=== PATIENT | female | born 1975 | race Caucasian/White ===

== ENCOUNTER 2016-04-01 09:19 | Emergency (ER) | payer BC ==
[2016-04-01 09:34] VITALS: BP 129/85
[2016-04-01 09:55] LABS: Hematocrit 44.8 % (37.0-47.0); Hemoglobin 14.5 gm/dL (12.5-16.0); Mean Cell Volume 85.8 fl (78-100); Mean Corpuscular Hemoglobin 27.8 pg (27-31); Mean Corpuscular Hgb Conc 32.4 g/dl (32-36); Mean Platelet Volume 9.7 fl (6.0-9.5); Neutrophil # 3.7 K/mm3 (1.3-6.0); Neutrophil % 66.2 % (42-75.0); Platelet Count 246 K/mm3 (150-450); Red Blood Count 5.22 M/mm3 (4.2-5.4); Red Cell Distribution Width 13.2 % (11.5-14.0); White Blood Count 5.6 K/mm3 (4.0-10.5)
[2016-04-01 10:05] LABS: Albumin * 4.2 gm/dl (3.4-5.0); Anion Gap 10.8 mmol/L (6.8-13.8); BUN/Creatinine Ratio 11.1 (9.0-21.6); Bilirubin, Total 0.8 mg/dL (0.0-1.1); Calcium * 9.5 mg/dL (7.9-10.9); Carbon Dioxide 31.2 mmol/L (24-32.6); Total Protein 7.9 gm/dL (6.2-8.2)
[2016-04-01 10:14] LABS: Urine Bilirubin Negative (NEGATIVE); Urine Ketone Negative (NEGATIVE); Urine Nitrite Negative (NEGATIVE); Urine Protein Negative (NEGATIVE); Urine Specific Gravity <=1.005 SP.GR. (1.005-1.010); Urine Urobilinogen Normal (NORMAL)
[2016-04-01] MEDS ORDERED: BELLADONNA ALKALOIDS/PHENOBARB 60 ML BTL PO ONE (10:26)
[2016-04-01] MEDS ORDERED: LIDOCAINE HCL 20 ML UDC MM ONE (10:26)
[2016-04-01] MEDS ORDERED: SUCRALFATE 1 G/10 ML UDC PO ONE (10:26)
[2016-04-01] MEDS ORDERED: MAG HYDROX/ALUMINUM HYD/SIMETH 30 ML UDC PO ONE (10:26)
[2016-04-01 10:32] LABS: Urine Appearance Clear; Urine Bacteria None Seen; Urine Blood 10 /ul (NEGATIVE); Urine Color Pale Yellow; Urine RBC TRACE /hpf (0-5); Urine WBC None Seen /hpf (0-5)
--- NOTE | 2016-04-01 10:45 | ERNOTE ---
Abdominal HPI - Narrative Date of Service: 04/01/16 - General Chief Complaint: Abdominal Pain Time Seen by Provider: 04/01/16 10:12 Source: patient Exam Limitations: no limitations - Immun/Allergies/Home Medications Immunizatons: IMMUNIZATION HX Immunizations Up to Date Yes History of Influenza Vaccine Yes Hx Pneumococcal Vaccination No Allergies/Adverse Reactions: Allergies No Known Allergies Allergy (Verified 04/01/16 09:34) Home Medications: HOME MEDICATIONS Ondansetron HCl [Zofran] 4 mg PO Q6H 04/01/16 [Last Taken Unknown] Pantoprazole Sodium [Protonix] 40 mg PO BID #30 tab 04/01/16 [Last Taken Unknown ] Polyethylene Glycol 3350 [Miralax] 17 gm PO DAILY #1 bottle 04/01/16 [Last Taken Unknown] Sucralfate [Carafate Suspension] 1 g PO ACHS #560 ml 04/01/16 [Last Taken Unknown] - History of Present Illness Narrative: 41 yo, F, reports to ER for evaluation of epigastric pain x2 weeks. States she is having nausea and burning to epigastric region since the week of . States she began feeling sick a few days after . She was evluated in the [place] ER on 03/28/15. A cardiac workup was performed with a normal EKG, negative CXR and negative Troponin. States her symptoms improved with a GI cocktail, but states symptoms returned 30 min later. She feels her nausea and epigastric pain have progressively worsened over the past few days and is having only minimal improvement with Zantac and Prevacid. Initially she was having improvement of pain and nausea with bland foods, such as bananas, but is now having no relief with eating. She is scheduled to see GI at [facility] on 04/08/15, but states she was very uncomfortable this am and felt she needed to seek tx sooner. Last BM today, which she describes as loose, otherwise having no diarrhea or constipation. Timing: constant, getting worse Quality: burning Modifying Factors - (Improves): Present: antacids - mild improvement Modifying Factors - (Worsens): Present: lying down Associated Symptoms: Present: nausea. Absent: chest pain, diarrhea-gross blood , vomiting, shortness of breath Prior Abdominal Problems: Present: none Review of Systems - Review of Systems Constitutional: Present: chills, diaphoresis - single episode this am. Absent: fever ENT: Absent: nose congestion, sore throat Respiratory: Absent: shortness of breath, cough, wheezing Cardiology: Absent: chest pain, palpitations Genitourinary: Absent: frequency, pain, dysuria, hematuria Skin: Absent: rash - Patient's Past Medical History Patient History - Medical: Anxiety Patient History - Cancer: No Hx of Cancer Patient History - Surgical Procedures: D & C LMP (females 10-50): last week - Social History Living Situations: home Smoking Status: Never smoker Alcohol Use: none Drug Use: none Physical Exam - Physical Exam General Appearance: Present: wd/wn, alert, no apparent distress Respiratory: Present: no respiratory distress, normal breath sounds. Absent: rales, rhonchi, wheezing Cardiovascular/Chest: Present: regular rate, rhythm, no murmur Gastrointestinal/Abdominal: Present: normal bowel sounds, nondistended, soft, no organomegaly, tenderness - epigastric region. Absent: rebound, McBurney sign , Mahan sign Back Exam: Present: no CVA tenderness Neurological Exam: Present: alert, oriented, normal mood/affect Skin Exam: Present: normal color, warm/dry ED Progress - Results and Orders Patient's Lab Results:: I have reviewed the patient's lab results. - Vital Signs Patient's Vital Signs:: I have reviewed the patient's vital signs. Vital Signs: Vital Signs 04/01/16 09:29 Temperature 36.6 C Pulse Rate 81 Respiratory 16 Rate Blood Pressure 129/85 O2 Sat by Pulse 99 Oximetry - EKG EKG: NSR - reviewed with [facility] EKG, no acute changes noted - X-Ray X-Ray #1 X-Ray: abdomen Interpretation: Reviewed by me X-ray Comments: Exam Date: 04/01/2016 10:36 Ordering Physician: Miri Montero HISTORY: Epigastric abdominal pain. TECHNIQUE: AP upright and supine views of the abdomen were obtained, total of 4 images. COMPARISONS: None available.. FINDINGS: Abdomen Flat W/ Upright *: No subdiaphragmatic free air. Stool retention suggestive within the proximal segments of the colon. No evidence for abnormal dilation of large or small bowel. Small rounded calcifications in the pelvis most likely phleboliths. Degenerative changes of the lumbar spine and bilateral hips noted. IMPRESSION: 1. Stool retention suggestive of constipation. No evidence for obstruction. 2. Additional comments are as above. Electronically signed by Yeyo Strauss M.D.. Approved by: Approval Date: 04-01-2016 Approval Time: 11:41 AM - Progress/Reassessment Chief Complaint: Abdominal Pain Progress:: Improved - improved with GI cocktail Departure - Departure Clinical Impression: Gastritis Qualifiers: Gastritis type: unspecified gastritis Chronicity: acute Gastritis bleeding: without bleeding Qualified Code(s): K29.00 - Acute gastritis without bleeding Constipation Qualifiers: Constipation type: unspecified constipation type Qualified Code(s): K59.00 - Constipation, unspecified Disposition: Home self-care Condition: Good Instructions: Gastritis, Adult, [id number] Additional Instructions: [place] diet, avoid acidic foods such as citrus, caffeine, chocolate, alcohol Stop Ranitidine, start Protonix and Carafate Start Miralax daily for treatment of constipation Keep follow up appt with GI as previously scheduled, if symptoms worsen call their office or return to ER Referrals: Woody Montenegro MD [Primary Care Provider] - Prescriptions: Pantoprazole Sodium [Protonix] 40 mg PO BID #30 tab Polyethylene Glycol 3350 [Miralax] 17 gm PO DAILY #1 bottle Sucralfate [Carafate Suspension] 1 g PO ACHS #560 ml
== END 2016-04-01 12:32 | disposition home or self-care (01) ==
LOC: ER 09:19
DX: K29.00 Acute gastritis without bleeding (principal); K59.00 Constipation, unspecified